=== PATIENT | female | born 1960 | race Caucasian/White ===

== ENCOUNTER 2019-12-20 06:54 | Observation (INO) ==
--- NOTE | 2019-11-21 09:58 | PAT Medication Instructions ---
Medication Instructions Date of Service November 21, 2019 Home Medications [id number]-apebattmwmtot-[id number] [Excedrin Migraine] 1 tab PO WK PRN ASK your surgeon for instructions itufsuu-aosxcbksrptym-hhvepfnf [Excedrin Migraine] 1 tab PO WK PRN Other Notes If you have any questions please call us at [phone] or [phone] or [phone] or [phone]
--- NOTE | 2019-11-26 10:23 | Anesthesiology Consultation ---
Date of Service November 26, 2019 Assessment & Plan (1) Encounter for pre-operative examination: Per assessment on 11/25: Travel screen- Returned from travel to [facility] [place] 11/16 (did not eat in public, followed COVID precaution guidelines while in public). No known COVID-19 positive contacts or current COVID-19 related symptoms. Surgeon arranging preop COVID testing (12/15, [facility]). Awaiting results. Chart Review Chart Review: Acceptable Risk for Surgery and Patient seen in Pre Admission Testing Teaching & Discussion Pre-Anesthesia Teaching/Discussion Notes: Instructed NPO after midnight before surgery,except medications with 15 cc of water. Medication instructions provided according to the PAT guidelines. History Surgery Operation Date: 12/20/19 10:40 Proposed Procedures p Left Uni versus Total Knee Replacement - Calin Sharma MD s Total Knee Arthroplasty - Calin Sharma MD Height/Weight Height: 5 ft 3 in Weight: 81.4 kg Allergies Allergy/AdvReac Type Severity Reaction Status Date / Time No Known Allergies Allergy Verified 11/19/19 09:04 Medications Home Medications Medication Instructions Recorded Confirmed Last Taken ghnjijt-mmbclgerhoafw-txrnbjzk 1 tab PO WK PRN 11/19/19 11/19/19 Unknown [Excedrin Migraine] Past Medical History Medical History Left knee DJD Exercise / Class Metabolic Activity II 4-5 Yardwork/Stairs/Walk up hill Past Family History Family History Uncle Throat cancer Father Diabetes Grandmother (Paternal) Diabetes Mother Graves disease Past Surgical History Surgical History History of arthroscopy right knee History of colonoscopy History of esophagogastroduodenoscopy (EGD) History of in vitro fertilization x2 History of tooth extraction wisdom teeth Past Anesthesia History No Hx of Anesthesia Complications and No Family Hx of Anesthesia Complications History of PONV No Hx of PONV and No Hx of Motion Sickness Social History Smoking Status: Never smoker Do You Dip or Chew Tobacco: No Hx Alcohol Use: Yes Alcohol type: beer alcohol intake frequency: a few times a month Hx Substance Use: No substance use type: does not use Review of Systems Patient denies chest pain, shortness of breath, dyspnea on exertion, fever, chills, cough, wheezing, palpitations. Physical Exam Vital Signs VITALS BP 120/80 P 76 TEMP 98.1 SP02 98%RA RESP 16 PHYSICAL Full neck and c-spine range of motion. Full TMJ range of motion. TMD 3 finger breaths Mallampati Score 2 Dentition: intact Lungs: clear throughout to auscultation Cardiac: regular rate and rhythm, no murmurs noted Spine: normal Carotid arteries: negative bruit Extremities: no edema Testing Laboratory Results 11/26/19 10:46 11/26/19 10:46 PT 10.4 Seconds (9.0-12.0) 11/26/19 10:46 INR 1.0 (0.9-1.1) 11/26/19 10:46 APTT 25.2 Seconds (21.0-31.0) 11/26/19 10:46 Blood Type O Positive 11/26/19 10:46 Antibody Screen NEGATIVE 11/26/19 10:46 Electrocardiogram Date: 11/26/19 NSR at 62bpm. unconfirmed report. Chest X-Ray Date: 11/26/19 FINDINGS: Cardiomediastinal and hilar silhouettes are within normal limits. Ill- defined medial right lung base opacities suggestive of a prominent epicardial fat pad. No pneumothorax, pleural effusion, airspace consolidation or overt pulmonary edema. Bones of the chest appear grossly intact. IMPRESSION: No acute process. Stress Test Date: 12/13/17 Type: exercise Stress echo negative for ischemic response. No ECG changes to suggest ischemia. 6.4 METS. LVEF 60%. No RWMA. No significant valvular disease.
[2019-11-26 11:17] LABS: Basophils # (auto) 0.02 K/uL (0-0.2); Basophils % (auto) 0.4 %; Eosinophils # (auto) 0.09 K/uL (0-0.5); Eosinophils % (auto) 1.8 %; Hematocrit (blood only) 41.3 % (37-47); Hemoglobin 13.8 g/dL (12.0-16.0); Immature Granulocytes # (auto) 0.01 K/uL (0.00-0.02); Immature Granulocytes % (auto) 0.2 %; Lymphocytes # (auto) 0.72 K/uL (1.2-3.4); Lymphocytes % (auto) 14.5 %; Mean Corpuscular Hgb Conc 33.4 g/dL (32-36); Mean Corpuscular Volume 92.8 fL (80-100); Mean Platelet Volume 10.9 fL (7.4-10.4); Monocytes # (auto) 0.49 K/uL (0.11-0.59); Monocytes % (auto) 9.9 %; Neutrophils # (auto) 3.63 K/uL (1.4-6.5); Neutrophils % (auto) 73.2 %; Platelet Count 218 K/uL (130-400); RDW Coefficient of Variation 12.9 % (11.5-14.5); RDW Standard Deviation 43.9 fL (36.4-46.3); Red Blood Count 4.45 M/uL (4.2-5.4); White Blood Count 4.96 K/uL (4.8-10.8)
--- NOTE | 2019-11-26 11:22 | XRay Report ---
XR chest Pre-admission PA/Lat HISTORY: 59 years-old Female pat preoperative exam. No acute chest complaints COMPARISON: None TECHNIQUE: PA and lateral views of the chest FINDINGS: Cardiomediastinal and hilar silhouettes are within normal limits. Ill-defined medial right lung base opacities suggestive of a prominent epicardial fat pad. No pneumothorax, pleural effusion, airspace c onsolidation or overt pulmonary edema. Bones of the chest appear grossly intact. IMPRESSION: No acute process. ACT 112: Negative or not required by law. The above report was generated using voice recognition software. It may contain grammatical, syntax o r spelling errors. Electronically signed by: Jose Antonio Gilliam M.D. 11/26/2019 11:21 AM
[2019-11-26 11:29] LABS: Partial Thromboplastin Ratio 0.9; Partial Thromboplastin Time 25.2 Seconds (21.0-31.0); Prothrombin Time 10.4 Seconds (9.0-12.0)
[2019-11-26 14:05] LABS: BUN Creatinine Ratio 17.7 (10-20); Calcium 9.1 mg/dl (8.5-10.1); Creatinine Clr Calc Pharmacy 78.5 ml/min; Est GFR (African American) 98.1; Est GFR (Non-African American) 84.7; Potassium 4.2 mmol/L (3.5-5.1)
--- NOTE | 2019-11-26 18:14 | Electrocardiogram Report ---
Test Reason : Blood Pressure : / mmHG Vent. Rate : 062 BPM Atrial Rate : 062 BPM P-R Int : 122 ms QRS Dur : 080 ms QT Int : 388 ms P-R-T Axes : 024 036 036 degrees QTc Int : 393 ms Normal sinus rhythm Normal ECG No previous ECGs available Confirmed by Armando Stanton ([id number]) on 11/26/2019 6:14:09 PM Referred By: Calin Sharma Confirmed By:Omar Stanton
--- NOTE | 2019-12-14 20:13 | History and Physical Report ---
DATE OF ADMISSION: 12/20/2019 CHIEF COMPLAINT: Persistent left medial knee pain and discomfort. HISTORY OF PRESENT ILLNESS: The patient is a 59-year-old female who presents for followup and surgical treatment of her left knee. She has a history of left knee arthroscopy done by Dr. Dsouza about 18 years ago. Over the past several years, she has developed increased pain and discomfort that is localized to the medial side of her knee. It is increased with weightbearing. The more she walks, the more it hurts. She is having difficulty maintaining any degree of active lifestyle as a result. She is pretty frustrated by this. She would like to have her knee fixed. PAST MEDICAL HISTORY: Significant for, 1. Mild obesity with BMI of 32. 2. TMJ problems. PAST SURGICAL HISTORY: Includes left knee arthrosc[place] [address] Dsouza. ALLERGIES: None. CURRENT MEDICATIONS: None. SOCIAL HISTORY: A 59-year-old white female. She is from [place]. Does not smoke. No significant alcohol intake. FAMILY HISTORY: Noncontributory. REVIEW OF SYSTEMS: Negative for diabetes, neurologic problem, vascular problems or bleeding disorders. No chest pain or shortness of breath. No history of DVT or PE. No known bleeding problems. PHYSICAL EXAMINATION GENERAL: Shows a pleasant, middle-aged female. HEENT: Benign. NECK: Supple, no lymphadenopathy. LUNGS: Clear to auscultation. HEART: Has a regular rate and rhythm. ABDOMEN: Soft, nontender, nondistended. EXTREMITIES: Grossly neurovascularly intact except as follows: Examination of the left knee reveals the patient ambulates independently. She has a slight varus alignment to her knee. She has well-healed arthroscopic portal sites. Small knee effusion. She is tender over the medial joint line. Range of motion 0-125 and 130. There is no instability. Carlee is negative. Carrie causes some pain. X-RAYS: X-rays of the left knee are reviewed. It shows advanced medial compartment arthritis. She has got complete loss of her joint space. On the stress films, her medial compartment opens up and the lateral compartment is pretty well maintained. Minimal if any patellofemoral arthritis. ASSESSMENT: A 59-year-old white female with a history of knee arthroscopy 18 years ago with advanced medial compartment arthritis. She failed conservative treatment. She would like to proceed with arthroplasty. PLAN: We discussed treatment options. After extensive discussion, we are going to proceed with partial knee replacement. If we get in there, it is too bad, we will do a full knee replacement. The risks and benefits of partial and total knee replacement were explained to the patient including but not limited to DVT, PE, , infection, neurological injury, vascular injury, bleeding problem, pain, limited range of motion, stiffness, failure to relieve her symptoms, incomplete relief of symptoms, need for further surgery in the future, fracture, leg length inequality, nerve palsy, dislocation, etc. The patient understands and desires to proceed. Informed consent was obtained. LUIS ALBERTO
[~2019-12-20 06:54] MED LIST: ACETAMINOPHEN 500 MG TAB PO SCH; BUPIVACAINE 0.5 % 5 MG/1 ML PF 10ML VIAL ONE; BUPIVACAINE LIPOSOME/PF 266 MG, BUPIVACAINE/EPINEPHRINE 50 ML, SODIUM CHLORIDE 0.9% 30 ... INFIL SCH; BUPIVACAINE/EPINEPHRINE 0.25% 1:200,000 30 ML VIAL ONE; FAMOTIDINE 20 MG TAB PO SCH; GABAPENTIN 600 MG DOSE PO SCH; LR 500ML BOLUS, THEN 15ML/HR IV SCH; LR 60ML/HR IV SCH; TRANEXAMIC ACID 1,000 MG **IV Intra-op IV SCH
[2019-12-20] MEDS ORDERED: fentaNYL citrate 100 MCG/2 ML VIAL ONE (07:12)
[2019-12-20] MEDS ORDERED: MIDAZOLAM HCL 1 MG/ML 2ML VIAL ONE (07:12)
[2019-12-20] MEDS ORDERED: PROPOFOL IV EMULSION 10 MG/ML 20 ML VIAL IV ONE (07:14)
[2019-12-20] MEDS ORDERED: ePHEDrine sulfate 50 MG/ML AMP IV PRN (08:13)
[2019-12-20] MEDS ORDERED: fentaNYL citrate 100 MCG/2 ML VIAL IV PRN (08:13)
[2019-12-20] MEDS ORDERED: HYDROmorphone INJ 2 MG/ML SYR/VIAL IV PRN (08:13)
[2019-12-20] MEDS ORDERED: ATROPINE SULFATE 0.1 MG/ML 10ML SYR IV PRN (08:13)
[2019-12-20] MEDS ORDERED: BUPIVACAINE LIPOSOME 1.3% 266 MG/20 ML VIAL ONE (08:26)
[2019-12-20] MEDS ORDERED: SODIUM CHLORIDE 0.9% PF 50 ML VIAL ONE (08:26)
[2019-12-20] MEDS ORDERED: BACITRACIN INJ 50,000 UNIT VIAL ONE (08:26)
[2019-12-20] MEDS ORDERED: BUPIVACAINE/EPINEPHRINE 0.25% 1:200,000 30 ML VIAL ONE (08:26)
--- NOTE | 2019-12-20 08:31 | History & Physical Bridge Note ---
Date of Service December 20, 2019 History & Physical Bridge Note I have examined the patient, reviewed the History & Physical and in the interval since the performance of the History & Physical I have noted the following changes of clinical significance: no changes noted
[2019-12-20] MEDS: CEFAZOLIN 2000MG 2,000 MG/15 ML SYR IV SCH ×3 (08:41→17:20)
[2019-12-20] MEDS ORDERED: ONDANSETRON INJ 2 MG/ML 2 ML VIAL ONE (08:49)
[2019-12-20] MEDS ORDERED: ePHEDrine sulfate 50 MG/ML AMP ONE (09:19)
--- NOTE | 2019-12-20 10:22 | Post Operative Brief Note ---
PG Immediate Post Op with CF Date of Surgery December 20, 2019 Pre & Post Diagnosis Operation Date: 12/20/19 08:50 Pre-Op Diagnosis: Left Knee Degenerative Joint Disease Post-Op Diagnosis: Left Knee Degenerative Joint Disease I identified the patient and participated in the time-out.: Yes Procedure Operation Date: 12/20/19 08:50 Actual Procedures p Left Medial Uni-Compartment Knee Arthroplasty(Left) - Calin Sharma MD Surgeon Calin Sharma MD Safe Technician Gisselle, HERBERT Estimated Blood Loss 25 Findings Consistent with Post-Op Diagnosis Fluids 700cc Specimens Specimen Description: Permanent Specimen: A) Left Knee Bone and Tissue Drains Pleitez Catheter Anesthesia Type Spinal MAC Complications none Disposition Accompanied Patient To Recovery: No Disposition: Recovery Room
--- NOTE | 2019-12-20 10:44 | Operative Report ---
Post Operative Report Pre & Post Diagnosis Operation Date: 12/20/19 08:50 Pre-Op Diagnosis: Left Knee Degenerative Joint Disease Post-Op Diagnosis: Left Knee Degenerative Joint Disease I identified the patient and participated in the time-out.: Yes Procedure Operation Date: 12/20/19 08:50 Actual Procedures p Left Medial Uni-Compartment Knee Arthroplasty(Left) - Calin Sharma MD Surgeon Calin Sharma MD Door Operator Gisselle, PAC Estimated Blood Loss 25 Findings Consistent with Post-Op Diagnosis Operative findings revealed advanced left knee medial compartment DJD with grade 4 jhiv-ox-rbyq disease. Her patellofemoral and lateral compartments are well preserved. She has mild knee effusion. She had osteophytes in the medial compartment. Fluids 700 cc. Specimens Left knee sent for pathology. Drains None. Anesthesia Type Spinal MAC Complications none Disposition Accompanied Patient To Recovery: No Disposition: Recovery Room Indications Patient is a 59-year-old female is had a long history of left knee problems. She had her left knee scoped about 18 years ago done [place]. She did pretty well for a while for the past 5 to 10 years she developed increased pain discomfort in the medial side of her knee. Symptoms are localized the medial side of her knee. X-rays show progressive medial compartment arthritis. She failed conservative treatment elected proceed with surgical treatment. Description of Procedure Operative implants consist of: 1 Biomet Labolt small medial femoral component. 2. Biomet size B left medial tibial tray. 3. 4 mm mobile-bearing polyethylene insert. Patient was taken to the operating identified and placed on the operating table supine position protectors were properly padded. IV antibiotics arrived by anesthesia team. A spinal anesthetic and been implemented holding area. A a bductor canal block had provided as well. Pleitez catheter was placed in sterile fashion with a left thigh turn was then placed in the left lower extremities and prepped and draped in usual sterile fashion. The left leg was elevated exsanguinated with use of an Esmarch and turns placed at 300 mmHg. An anterior approach left knee was then performed through a longitudinal incision beginning at the superior pole patella and extending just medial to the tibial tubercle. Sharp dissection was got through subcutaneous tissues down the extensor mechanism. The subcutaneous tissue was mobilized circumferentially. A medial parapatellar arthrotomy incision was made. Some subperiosteal dissection was carried out medially. Great care was taken to protect the MCL ligament. The fat pad was resected from the patella tendon. The femur was sized to a size small. The a small spoon was placed. The external tibial alignment jig was then placed in the interface the tibia and adjusted and attached to the small spoon with a 4G clamp. The tibial guide was pinned in place. The proximal tibial cut was made. The tibia sized to a size B. Attention drawn the femur. The distal femur was then with a sharp drill. Intramedullary canal was suctioned and the IM alexis was placed. The small femoral component was then attached to the IM guide and the holes were drilled for the femoral component. The posterior cutting guide was placed and the posterior cut was made. The is 0 spigot was then placed in the distal femur and the distal distal femur was milled. I then trialed the knee and the 4 feeler gauge fit well in flexion and the one in extension. Therefore used a 3 spigot milled the distal femur again. Of note, we did resect the medial meniscus. The trial implants were placed in the 4 implant fit appropriately in both flexion and extension. We elect to place these implants. All trial implants were removed. I did use the femoral preparation guide to milled the anterior aspect of the femur as well as remove the posterior osteophyte. The tibial tray was pinned in place and the toothbrush saw blade was used to create the keel for the tibial tray. We then trialed the knee one more time and the components fit appropriately. We elect to place these implants. All trial implants were removed. I did inject locally with 100 cc of combination of 20 cc of Exparel, 30 cc normal saline, 50 cc of quarter percent Marcaine with epinephrine. A single patch of Palacos G cement was mixed. A left medial size B tibial tray was cemented in place followed by a small femoral component. The 4 feeler gauge was placed in the knee was brought out into about 30 degrees short full extension. All extraneous cement was removed. This was held in place until the cement hardened. We then did a final trial and the 4 implant fit appropriately. The 4 implant was then placed. I then irrigated the wound extensively. The tourniquet was let down for turn time 61 minutes. Hemostasis surgery was electrocautery. The extensor mechanism closed with #1 Vicryl suture in [id number]-fbzid fashion. Extensor mechanism checked found to be intact the subcutaneous tissue then closed with 2 Dexon suture in a buried interrupted fashion skin was closed skin karan. Leg was then cleaned dried a sterile dressing composed Xeroform, 4 x 4's, ABD pad, sterile cast padding, Byron bandage were applied. Patient then transferred to the recovery room in stable condition. Patient tolerated procedure well and there were no complications. Jose Pitts, my physician switchboard operator assistant, was present for the entire procedure. His assistance was essential and required for appropriate patient positioning, prepping and draping, surgical exposure, performing the technical details of the operation, placing the implants, and closure of the wound along with placement of the sterile bandage. I attest to the content of the Intraoperative Record and any orders documented therein. Any exceptions are noted below.
--- NOTE | 2019-12-20 10:48 | Anesthesiology Progress Note ---
Date of Service December 20, 2019 Anesthesia Post Procedure Vital Signs Vital Signs: Temp Pulse Pulse Resp BP BP Pulse Ox 12/20/19 10:45 71 20 111/62 96 12/20/19 10:35 75 21 100/58 L 98 12/20/19 10:28 36.0 C L 73 18 100/54 L 99 12/20/19 07:50 93 H 18 117/66 98 12/20/19 07:19 36.5 C 64 18 127/73 98 Pain Intensity Left Knee: Pain Intensity: 0 Transfer of Care Handoff Completed per policy Notes Mental Status: alert / awake / arousable and participated in evaluation Patient Amnestic to Procedure: Yes Nausea / Vomiting: adequately controlled Pain: adequately controlled Airway Patency, RR, SpO2: stable & adequate BP & HR: stable & adequate Hydration State: stable & adequate Anesthetic Complications: no major complications apparent and Pt Satisfied with anesthetic care
--- NOTE | 2019-12-20 11:06 | Anesthesiology Progress Note ---
Date of Service December 20, 2019 Anesthesia Post Procedure Vital Signs Vital Signs: Temp Pulse Pulse Resp BP BP Pulse Ox 12/20/19 11:00 72 20 104/61 94 12/20/19 10:55 36.4 C L 67 18 115/64 93 12/20/19 10:45 71 20 111/62 96 12/20/19 10:35 75 21 100/58 L 98 12/20/19 10:28 36.0 C L 73 18 100/54 L 99 12/20/19 07:50 93 H 18 117/66 98 12/20/19 07:19 36.5 C 64 18 127/73 98 Pain Intensity Left Knee: Pain Intensity: 0 Transfer of Care Handoff Completed per policy Notes Mental Status: alert / awake / arousable and participated in evaluation Patient Amnestic to Procedure: Yes Nausea / Vomiting: adequately controlled Pain: adequately controlled Airway Patency, RR, SpO2: stable & adequate BP & HR: stable & adequate Hydration State: stable & adequate Anesthetic Complications: no major complications apparent and Pt Satisfied with anesthetic care
[2019-12-20] MEDS ORDERED: ALUMINUM/MAGNESIUM SUSP 30 ML UDC PO PRN (11:21)
[2019-12-20] MEDS ORDERED: HYDROmorphone INJ 0.5 MG/0.5 ML SYR IV PRN (11:21)
[2019-12-20] MEDS ORDERED: NON-FORMULARY MEDICATION (Aspirin-Acetaminophen-Caffeine [Excedrin Migraine] 1 TAB) PO PRN (11:21)
[2019-12-20] MEDS ORDERED: ONDANSETRON INJ 2 MG/ML 2 ML VIAL IV PRN (11:21)
[2019-12-20] MEDS ORDERED: NALOXONE HCL 0.4 MG/1 ML VIAL/CARP IV PRN (11:21)
[2019-12-20] MEDS ORDERED: TRAMADOL HCL 50 MG TABLET PO PRN (11:21)
[2019-12-20] MEDS ORDERED: bisacodyL 10 MG SUPP PR PRN (11:21)
[2019-12-20] MEDS ORDERED: MAGNESIUM HYDROXIDE SUSP 30 ML UDC PO PRN (11:21)
[2019-12-20] MEDS ORDERED: METOCLOPRAMIDE HCL INJ 5 MG/ML 2 ML VIAL IV PRN (11:21)
[2019-12-20] MEDS: KETOROLAC 30 MG/ML VIAL IV SCH ×2 (12:07→17:20)
[2019-12-20] MEDS: SODIUM CHLORIDE 0.9% 1000ML 1,000 ML IV SCH ×2 (12:07→22:19)
[2019-12-20] MEDS: ACETAMINOPHEN 500 MG TAB PO SCH ×2 (13:09→22:19)
--- NOTE | 2019-12-20 13:42 | XRay Report ---
XR knee LT 1 or 2V routine CLINICAL HISTORY: Surgical Post Op COMPARISON: None. DISCUSSION: There are postsurgical changes of a medial joint compartment arthroplasty. No fractures a re visualized. There are overlying skin karan. There is air within the soft tissues consistent with recent surgery IMPRESSION: Postsurgical changes of a medial joint compartment arthroplasty ACT 112: Negative or not required by law. Electronically signed by: Ponce Villarreal M.D. 12/20/2019 1:41 PM
[2019-12-20] MEDS: Scopolamine CHECK PATCH PLACEMENT SCH (17:20)
[2019-12-20] MEDS: ASCORBIC ACID 500 MG TAB PO SCH (17:20)
[2019-12-20] MEDS: ASPIRIN 81 MG ECTAB PO SCH (20:20)
[2019-12-20] MEDS: DOCUSATE SODIUM 100 MG CAP PO SCH (20:20)
[2019-12-20] MEDS ORDERED: SENNA 8.6 MG TAB PO SCH (21:00)
[2019-12-21] MEDS: CEFAZOLIN 2000MG 2,000 MG/15 ML SYR IV SCH (00:54)
[2019-12-21] MEDS: Scopolamine CHECK PATCH PLACEMENT SCH ×2 (00:54→09:09)
[2019-12-21] MEDS: KETOROLAC 30 MG/ML VIAL IV SCH ×3 (00:54→14:00)
[2019-12-21] MEDS: ACETAMINOPHEN 500 MG TAB PO SCH ×2 (05:28→14:00)
[2019-12-21] MEDS ORDERED: MULTIVITAMIN TAB PO SCH (09:00)
[2019-12-21] MEDS: DOCUSATE SODIUM 100 MG CAP PO SCH (09:09)
[2019-12-21] MEDS: ASCORBIC ACID 500 MG TAB PO SCH (09:09)
[2019-12-21] MEDS: ASPIRIN 81 MG ECTAB PO SCH (09:10)
--- NOTE | 2019-12-21 09:17 | Progress Notes ---
DATE: 12/21/2019 SUBJECTIVE: A 59-year-old white female postop day 1 from a left partial knee replacement. She is doing pretty well. Pain is controlled. Had a pretty good night. No chest pain or shortness of breath. Not feeling dizzy or lightheaded. OBJECTIVE: VITAL SIGNS: Temperature is 36.7. Vital signs stable. GENERAL: Shows a pleasant, middle-aged female. I had to awake her this morning. EXTREMITIES: Examination of the left leg reveals the leg to be well aligned. Dressing is clean, dry and intact. No drainage. Calf is soft and supple. She can do a good straight leg raise. ASSESSMENT: A 59-year-old white female postop day 1 from a left partial knee replacement, doing well. Pain is controlled. She is neurologically intact. PLAN: 1. DVT prophylaxis including thigh-high TEDs, SCDs, and aspirin twice a day. 2. PT/OT. Weight bear as tolerated. Left total knee protocol. 3. Pain control, doing well with current pain regimen. 4. Disposition: Plan to discharge to home with some home health likely later today if doing okay pain bradford.
--- NOTE | 2019-12-24 14:26 | Discharge Summary ---
Date of Service December 24, 2019 Admission HPI Per Admitting Provider Documented in the H & P Admission Exam (Per Admitting) Constitutional Documented in the h & P Discharge Data Consultations 12/20/19 11:21 Consult Case Management - Discharge Planning Routine Procedures Performed Operation Date: 12/20/19 08:50 Actual Procedures p Left Uni-Lateral Knee Arthroplasty(Left) - Calin Sharma MD Hospital Course (1) Status post unicompartmental knee replacement: This patient is a 59 year old female admitted on 12/20/19 and underwent unicompartment knee arthroplasty. She tolerated the procedure well and there were no complications. Transferred to the PACU post op and later to the orthopedic floor for further care. She was given ancef for antibiotic pr ophylaxis. She was also given ERLINDA stockings, SCDs, and aspirin for DVT prophylaxis. Vital signs were monitored during her hospital stay and remained stable. Did not require any blood transfusions. There were no complications during her hospital stay. By post op day #1 the patient was tolerating a regular diet, pain was reasonably controlled with oral pain medicine, and she was participating in physical therapy. On post op day #1 the patient was discharged home and set up with home health care. She was given printed discharge instructions including prescriptions for extra strength tylenol, aspirin, and tramadol. Continue physical therapy, weight bearing as tolerated. Continue ERLINDA stockings. Follow up approximately 2 weeks post op or sooner if there are problems or concerns. Coding Level of Care Code None Diagnoses Status post unicompartmental knee replacement Z96.659
== END 2019-12-21 14:15 | disposition home health service (06) ==
LOC: 3E 06:54 → ASU 06:54